=== PATIENT | female | born 2000 | race Caucasian/White ===

== ENCOUNTER → 2024-03-08 | Outpatient (CLI) | payer MEDICAID | END | disposition home or self-care (01) | LOC: RAD 11:58 → EDBD 11:58 | DX: M47.814 Spondylosis without myelopathy or radiculopathy, thoracic region (principal); G80.9 Cerebral palsy, unspecified; Q76.49 Other congenital malformations of spine, not associated with scoliosis; G80.0 Spastic quadriplegic cerebral palsy; Z74.09 Other reduced mobility; Z78.9 Other specified health status | CPT/HCPCS: 72040; 72070; 72100; 73521 ==